=== PATIENT | female | born 1990 ===

== ENCOUNTER 2018-12-28 16:50 | Inpatient (IN) | payer OTHER ==
[2018-12-28 17:24] VITALS: BMI 35.1
[2018-12-28] MEDS ORDERED: Lactated Ringer's 1,000 ML IV ONE (18:04)
[2018-12-28 18:30] LABS: BASO % 0.2 % (0.0-2.0); EOS % 0.2 % (0.0-4.0); HEMOGLOBIN 12.9 g/dL (12.0-16.0); LYMPH # 1.7 K/uL (1.0-4.3); LYMPH % 17.9 % (20.0-40.0); MEAN CELL VOLUME 84.9 fl (81.0-99.0); MEAN PLATELET VOLUME 10.5 fl (7.2-11.7); MONO # 0.9 K/uL (0.0-0.8); MONO % 8.9 % (0.0-10.0); NEUT % 72.8 % (50.0-75.0); RBC 4.6 Mil/uL (3.80-5.20); RED CELL DISTRIBUTION WIDTH 14.4 % (11.5-14.5); WHITE BLOOD COUNT 9.7 K/uL (4.8-10.8)
[2018-12-28 18:43] LABS: ALB/GLOB RATIO 1.1 (1.0-2.1); ALBUMIN 3.9 g/dL (3.5-5.0); ALT/SGPT 30 U/L (9-52); AST/SGOT 26 U/L (14-36); BLOOD UREA NITROGEN 10 mg/dl (7-17); CALCIUM 10.3 mg/dL (8.4-10.2); GFR NON-AFRICAN AMERICAN > 60
--- NOTE | 2018-12-28 21:02 | OBADHP ---
Datetime: 12/28/2018 18:05 IP Chief Complaint Other: GESTATIONAL HYPERTENSION Admit Comment, IP Provider: 28 yo with IUP at 37+6 wks based on LMP of 04/07/[address] Bhavana baxter for elevated BP in the office today (140's-150's/90's). Patient has been suffering from lower e xtremity edema for the past 2-3 weeks. Denies vaginal bleeding, contractions and loss of fluid per th e vagina. Endorses good movement. ROS: negative except for stated above in the HPI. ObHx: Dr. Correa, last visit was today PMH: Healthy PSH: None Meds: PNVs All: NKDA Soc hx: Pt denies tobacco, alcohol and ilicit drug use Fam hx: Mother with thyroid problems (pt unsure if hyperthyroidism or hypothyroidism) and father w ith HTN. Labs: HIV: negative; HbsAg: negative; GBS: negative; Rubella: immune; RPR: non-reactive; ABO: B+ PE: Hypertension- 144/99 Gen'l: Pt appears in NAD, lying in bed Heart: RRR, no murmurs, gallops or rubs. Chest: Lungs CTA b/l Abd: soft, Non-tender to palpation. Ext: +1 pitting edema noted bilateral lower extremities. EFM: as above Farber: as abve A/P: 28 yo with IUP at 37+6 wks based on LMP of 04/07/[address] Correa for elevated BP admitted for Gestational hypertension -Admit patient to L _ D for Gestation hypertension -EFM and toco monitoring - Continue BP monitoring -Urinalysis -CMP -CBC -LDH - NST- reactive tracing- category 1 -NPO for now until laboratory returns. Discussed with Dr. Jaz Umaña, PGY1 Addendum by Dr. Sebastian: I have evalauted the patient indepenently and I agree with the above. The p atient is @ 37.6 wks with pressures 140s-150s/90s in office and then subsequently at the [facility], classifying the patient as a gestational hypertensive. Patient denies BRICE, blurred vision, N/V, CBC /CMP negative. Patient does not appear as a pre-eclamptic at this time. Will admit the patient, start the induction, IVF, CEFM and TOCO. Will start with Cytotec. VE=1/thick/high. Will continue to watch closely for worsening GHTN or superimposed pre-eclampsia. Pelvic Type - PN: Adequate Extremities - PN: Normal Abdomen - PN: Normal Back - PN: Normal Breast - PN: Not Done Lungs - PN: Normal Heart - PN: Normal Thyroid - PN: Normal Neurologic - PN: Normal HEENT - PN: Normal General - PN: Normal FHR - Baseline A Provider: 145 Vital Signs Provider: Reviewed Vital Signs Provider Details: HYPERTENSION IP Chief Complaint: Other NICHD Variability Prov Fetus A: Moderate 6-25bpm NICHD Accel Fetus A IP Provider: [id number] FHR Category Provider Fetus A: Category I NICHD Decel Fetus A IP Provider: None Genitourinary Exam: Normal DTRs - PN: Normal EGA AdmitDate IP: 37.6 IP Adm Impression: Term, intrauterine IP Admit Plan: Admit to unit
[2018-12-28 21:56] LABS: SQUAMOUS EPITHIAL 4 /hpf (0-5); URINE BACTERIA OCC (<OCC); URINE BILIRUBIN NEGATIVE (NEGATIVE); URINE BLOOD NEGATIVE (NEGATIVE); URINE CLARITY SLIGHTY-CLOUDY (Clear); URINE COLOR YELLOW (YELLOW); URINE GLUCOSE (UA) NEG (NEGATIVE); URINE LEUKOCYTE ESTERASE NEG Leu/uL (Negative); URINE PROTEIN NEGATIVE (NEGATIVE); URINE UROBILINOGEN 0.2-1.0 mg/dL (0.2-1.0)
[2018-12-28 23:15] VITALS: O2SAT 100
[2018-12-29] MEDS ORDERED: Lactated Ringer's 1,000 ML IV ONE (21:50)
[2018-12-29] MEDS ORDERED: Fentanyl/Bupivacaine HCl 250 ML EPI ONE (22:45)
[2018-12-29] MEDS ORDERED: Oxytocin 30 UNIT 30 UNITS/500 ML BAG IV ONE (23:56)
[2018-12-30] MEDS: Lactated Ringer's 1,000 ML IV SCH ×2 (00:05→06:15)
--- NOTE | 2018-12-30 07:46 | OBPN ---
Datetime: 12/29/2018 18:30 IP Informed Consent Obtain: Vaginal Delivery IP Progress Plan: Anticipate Vaginal Delivery IP Progress Note Comment: Nitfiied that she had SROM. SVE still 1cm...cont IOL with Cytotec. Will consider continuing with Pitocin later tonight. Dilatation, Provider: 1 Datetime: 12/29/2018 09:26 IP Progress Impression: Reactive non-stress test FHR - Baseline A Provider: 145 Vital Signs Provider: Reviewed; Within Normal Limits Vital Signs Provider Details: Normotensive NICHD Accel Fetus A IP Provider: [id number] FHR Category Provider Fetus A: Category I NICHD Variability Prov Fetus A: Moderate 6-25bpm NICHD Decel Fetus A IP Provider: None
[2018-12-30] MEDS ORDERED: Lidocaine 1% MPF (30 ml) Inj ONE (10:26)
[2018-12-30] MEDS ORDERED: Oxytocin 30 UNIT 30 UNITS/500 ML BAG IV ONE ×2 (13:44→13:47)
[2018-12-30] MEDS ORDERED: Oxycodone/Acetaminophen 5/325 mg Tab PO PRN ×2 (14:09→14:15)
[2018-12-30] MEDS ORDERED: Benzocaine/Menthol SPRAY TOP PRN ×2 (14:09→14:15)
--- NOTE | 2018-12-30 22:05 | OBDS ---
DELIVERY PERSONNEL Delivery Doctor: Radhika Correa MD Hydroponics Grower: Sophia Morgan RN Anesthesiologist: Dr. Blunt MATERNAL INFORMATION Delivery Anesthesia: Epidural Medications in Delivery: Pitocin 30 mu/500 mL LR Estimated Blood Loss (ml): 150 Placenta Cultured: No Maternal Complications: None Provider Comments: Patient is a 28 year old G1 admitted to L_D for induction of labor secondary to s uspected preeclampsia at term. Progressed to normal spontaneous vaginal delivery of live male infact, position RAFAL over intact perineum with epidural anesthesia. Infant placed on maternal abdomen and de layed cord clamping was performed. Apgars were 9 _ 9, no excessive resuscitation was required. No mec onium, nuchal cord x1. Spontaneous delivery of placenta (or manual) with 3-vessel cord. No laceration s. EBL 150cc. Jenelle Solis MD OB Fellow I agree with the note and I was present for the delivery LABOR SUMMARY EDC: 01/12/2019 00:00 No. Babies in Womb: 1 Attempted: No Labor Anesthesia: Epidural LABOR INFORMATION Reason for Induction: Not Applicable Onset of Labor: 12/30/2018 09:42 Complete Dilatation: 12/30/2018 09:42 Cervical Ripening Agents: Cytotec @ 50 mcg administered PO a per order Oxytocin: N/A Group B Beta Strep: Negative Antibiotics # of Doses: 0 Antibiotics Time of Last Dose: n/a Steroids Given: None Reason Steroids Not Administered: Not Applicable MEMBRANES Membranes Rupture Method: Spontaneous Rupture of Membranes: 12/29/2018 18:00 Length of Rupture (hrs): 16.50 Amniotic Fluid Color: Clear Amniotic Fluid Amount: Moderate Amniotic Fluid Odor: Normal STAGES OF LABOR Stage 1 hrs: 0 Stage 1 min: 0 Stage 2 hrs: 0 Stage 2 min: 48 Stage 3 hrs: 0 Stage 3 min: 6 Total Time in Labor hrs: 0 Total Time in Labor min: 54 VAGINAL DELIVERY Episiotomy: None Laceration Extension: N/A Laceration Type: None Laceration Repair: Not Applicable Initial Vag Sponge Count: 5 Final Vag Sponge Count: 5 Initial Vag Sharps Count: 0 Final Vag Sharps Count: 0 Sponge Count Correct: Yes Sharps Count Correct: N/A BABY A INFORMATION Infant Delivery Date/Time: 12/30/2018 10:30 Method of Delivery: Vaginal Born in Route : No : N/A Forceps: N/A Vacuum Extraction: N/A Shoulder Dystocia : No SHOULDER DYSTOCIA BABY A Infant Delivery Date/Time: 12/30/2018 10:30 PRESENTATION/POSITION BABY A Presentation: Cephalic Cephalic Presentation: Vertex Breech Presentation: N/A PLACENTA INFORMATION BABY A Placenta Delivery Time : 12/30/2018 10:36 Placenta Method of Delivery: Spontaneous Placenta Status: Delivered SCORES BABY A Heart Rate 1 min: >100 bpm Resp Effort 1 min: Good Cry Reflex Irritability 1 min: Cough or Sneeze or Pulls Away Muscle Tone 1 min: Active Motion Color 1 min: Body [place], Extremities Blue Resuscitation Effort 1 min: N/A SCORE 1 MIN: 9 Heart Rate 5 min: >100 bpm Resp Effort 5 min: Good Cry Reflex Irritability 5 min: Cough or Sneeze or Pulls Away Muscle Tone 5 min: Active Motion Color 5 min: Body [place], Extremities Blue Resuscitation Effort 5 min: N/A SCORE 5 MIN: 9 INFORMATION BABY A Gestational Age at Delivery: 38.1 Gestational Status: Term Outcome : Liveborn Infant Condition : Stable Sex: Male WEIGHT/LENGTH BABY A Birthweight (gms): 3235 Weight (lb): 7 Infant Weight (oz): 2 CORD INFORMATION BABY A No. Cord Vessels: 3 Nuchal Cord : N/A Cord Blood Taken: Yes Suction: Mouth; Nose
[2018-12-31 05:59] LABS: BASO % 0.3 % (0.0-2.0); EOS # 0.1 K/uL (0.0-0.7); EOS % 1.3 % (0.0-4.0); LYMPH # 2.1 K/uL (1.0-4.3); LYMPH % 21.1 % (20.0-40.0); MEAN CELL VOLUME 85.4 fl (81.0-99.0); MEAN CORPUSCULAR HEMOGLOBIN 28.1 pg (27.0-31.0); MEAN CORPUSCULAR HGB CONC 32.9 g/dL (33.0-37.0); MEAN PLATELET VOLUME 9.8 fl (7.2-11.7); MONO # 1.2 K/uL (0.0-0.8); MONO % 11.3 % (0.0-10.0); NEUT # 6.7 K/uL (1.8-7.0); NRBC % 0.1 % (0.0-0.0); RBC 3.91 Mil/uL (3.80-5.20); RED CELL DISTRIBUTION WIDTH 14.9 % (11.5-14.5); WHITE BLOOD COUNT 10.2 K/uL (4.8-10.8)
--- NOTE | 2019-01-01 08:50 | OBPPN ---
Datetime: 12/31/2018 08:42 PP Pain Prov: Within normal limits PP Nausea Prov: Denies PP Flatus Prov: Yes PP BM Prov: Yes PP Breasts Prov: Normal PP Heart Prov: Normal PP Lungs Prov: Normal PP Abdomen/Uterus Prov: Normal PP Lochia Prov: Normal PP Vulva/Perineum Prov: Normal PP CVA Tenderness Prov: Normal PP Extremities Prov: Normal PP C/S Incision Prov: Not Applicable PP Progress Prov: Normal PP Comments Phys Exam Prov: Abdomen soft, nontender, nondistended Uterus firm, below umbilicus No deep calf tenderness bilaterally PP Impression Prov: Normal progression PP Plan Prov: Continue present management PP Progress Note Prov: day #1 status post normal spontaneous vaginal delivery, patient re covering well CBC Regular diet Out of bed and ambulate Pain control Anticipate discharge home tomorrow IP PP Procedures: None Vital Signs Provider PP: Reviewed; Within Normal Limits
--- NOTE | 2019-01-01 11:10 | OBDCSUM ---
Datetime: 01/01/2019 11:09 Discharged to, Provider: Home Follow up at, Provider: [facility] Disch Instr Activity: Normal activity Disch Instr Diet: Regular Discharge Instructions, Provider: Routine instructions given Discharge Diagnosis, Provider: Term Delivered Follow up in weeks, Provider: 6 weeks Disch Referrals: None Contraception discussed, Prov: Yes Disch Activity Restrictions: Minimize stair-climbing; No sexual activity; Nothing in vagina - Interc ourse, tampons, douche Discharge Comment, Provider: Patient cleared for discharge Contraception after Delivery: Undecided
[2019-01-02 02:42] VITALS: BP 140/83; PULSE 74; RESP 20; TEMP 97.7
== END 2019-01-01 16:20 | disposition home or self-care (01) | DRG 807 ==
LOC: H.EROB2 16:50 → H.L&D 18:04 → H.OB/GYN 12-30 14:35
PROVIDERS: ADMIT Obstetrics & Gynecology; ATTEND Obstetrics & Gynecology
PROC: 4A1HXCZ Monitoring of Products of Conception, Cardiac Rate, External Approach (ICD-10-PCS; 2018-12-28)
PROC: 10E0XZZ Delivery of Products of Conception, External Approach (ICD-10-PCS; principal; 2018-12-30)
DX: O13.4 Gestational [pregnancy-induced] hypertension without significant proteinuria, complicating childbirth (principal); Z37.0 Single live birth; Z3A.38 38 weeks gestation of pregnancy